=== PATIENT | male | born 1965 | race Caucasian/White ===

== ENCOUNTER 2021-10-19 06:32 | Inpatient (IN) | payer OTHER ==
[~2021-10-19 06:32] MED LIST: Famotidine 20 MG/2 ML SDV IVPUSH SCH; Lactated Ringers 1,000 ML IV SCH; Ropivacaine 49.25 ML, Ketorolac 30 MG, EPINEPHrine 0.5 MG, cloNIDine 80 MCG in Sodium C... INJECT SCH; Scopolamine 1.5 MG Transdermal Patch TRDERM SCH
[2021-10-19] MEDS ORDERED: HYDROmorphone 1 MG/ML Syringe IVPUSH PRN (07:02)
[2021-10-19] MEDS ORDERED: fentaNYL 50 MCG/ML SDV IVPUSH PRN (07:02)
[2021-10-19] MEDS ORDERED: Naloxone 0.4 MG/ML SDV IVPUSH PRN (07:02)
[2021-10-19] MEDS ORDERED: Ondansetron 4 MG/2 ML SDV IVPUSH PRN ×2 (07:02→11:10)
[2021-10-19] MEDS ORDERED: Metoclopramide 10 MG/2 ML SDV IVPUSH PRN (07:02)
[2021-10-19] MEDS ORDERED: Albuterol 0.083% 2.5 MG/3 ML Neb Soln NEB PRN (07:02)
[2021-10-19] MEDS ORDERED: Famotidine 20 MG/2 ML SDV ONE (07:11)
[2021-10-19] MEDS ORDERED: propofoL 100 ML ONE (07:12)
[2021-10-19] MEDS ORDERED: fentaNYL 100 MCG/2 ML SDV ONE (07:13)
[2021-10-19] MEDS ORDERED: Dexmedetomidine 200 MCG/2 ML SDV ONE (07:15)
[2021-10-19] MEDS ORDERED: Water For Injection, Sterile 20 ML ONE (07:30)
[2021-10-19] MEDS ORDERED: Tranexamic Acid 1,000 MG/10 ML Vial ONE (07:30)
[2021-10-19] MEDS ORDERED: Ropivacaine 0.5% 5 MG/ML 30 ML SDV ONE (07:40)
[2021-10-19] MEDS ORDERED: ceFAZolin 2 GM in Premix Bag 1 BAG IV SCH (08:00)
[2021-10-19] MEDS ORDERED: Tranexamic Acid 1,000 MG in Sodium Chloride 0.9% 100 ML IV ONE (08:00)
[2021-10-19] MEDS ORDERED: Phenylephrine HCl In 0.9% NaCl 1 MG/10 ML Vial ONE ×2 (08:45→12:09)
[2021-10-19] MEDS ORDERED: Phenylephrine 1% 10 MG/ML SDV ONE (08:52)
[2021-10-19] MEDS ORDERED: Aluminum Hydroxide/Magnesium Hydroxide/Simethicone XS Susp 30 ML Cup PO PRN (11:10)
[2021-10-19] MEDS ORDERED: Bisacodyl 10 MG Supp RECTAL PRN (11:10)
[2021-10-19] MEDS ORDERED: Sodium Chloride 0.9% 10 ML Syringe FLUSH PRN (11:10)
[2021-10-19] MEDS ORDERED: diphenhydrAMINE 25 MG Cap PO PRN (11:10)
[2021-10-19] MEDS ORDERED: traMADol 50 MG Tab PO PRN (11:10)
[2021-10-19] MEDS ORDERED: Sodium Chloride 0.9% 2.5 ML Syringe FLUSH PRN (11:10)
[2021-10-19] MEDS ORDERED: Vasopressin 20 Units/1 ML MDV ONE (12:08)
[2021-10-19 14:07] LABS: CARBON DIOXIDE,CO2 27.4 mmol/L (21.0-32.0); POTASSIUM,K 4.4 mmol/L (3.5-5.1)
[2021-10-19] MEDS ORDERED: Acetaminophen 325 MG Tab PO PRN (15:00)
[2021-10-19] MEDS ORDERED: Phenylephrine 10 MG in Sodium Chloride 0.9% 99 ML IV SCH (16:15)
[2021-10-19] MEDS: oxyCODONE 5 MG Tab PO PRN ×2 (17:17→22:14)
[2021-10-19] MEDS: Ketorolac 30 MG/ML SDV IVPUSH SCH ×3 (17:19→23:50)
[2021-10-19] MEDS: ceFAZolin 2 GM in Premix Bag 1 BAG IV SCH ×2 (18:33→23:42)
[2021-10-19] MEDS: Aspirin 325 MG Tab PO SCH (19:53)
[2021-10-19] MEDS: Docusate Sodium 100 MG Cap PO SCH (20:17)
[2021-10-19] MEDS: Morphine 2 MG/ML SYRINGE IVPUSH PRN (20:48)
[2021-10-19] MEDS ORDERED: LORazepam 2 MG/ML SDV IVPUSH ONE (22:31)
[2021-10-19] MEDS: HYDROmorphone 2 MG/ML Syringe IVPUSH SCH (22:40)
[2021-10-19] MEDS: Cyclobenzaprine 5 MG Tab PO PRN (22:49)
[2021-10-20] MEDS: HYDROmorphone 2 MG/ML Syringe IVPUSH SCH (00:33)
[2021-10-20] MEDS: Morphine 2 MG/ML SYRINGE IVPUSH PRN (04:06)
[2021-10-20] MEDS: oxyCODONE 5 MG Tab PO PRN ×2 (06:15→10:28)
[2021-10-20] MEDS: Cyclobenzaprine 5 MG Tab PO PRN (07:03)
[2021-10-20] MEDS ORDERED: Levothyroxine 100 MCG Tab PO SCH (07:30)
[2021-10-20] MEDS: Aspirin 325 MG Tab PO SCH (08:09)
[2021-10-20] MEDS: Docusate Sodium 100 MG Cap PO SCH (08:09)
[2021-10-20] MEDS: Acetaminophen 325 MG Tab PO SCH ×2 (08:39→15:03)
[2021-10-20] MEDS ORDERED: Mirtazapine 15 MG Tab PO PRN (08:53)
[2021-10-20] MEDS ORDERED: buPROPion 150 MG Tab.ER PO SCH (09:00)
[2021-10-20] MEDS ORDERED: Famotidine 20 MG Tab PO SCH (09:00)
[2021-10-20] MEDS ORDERED: Citalopram 20 MG Tab PO SCH (09:00)
[2021-10-20] MEDS ORDERED: Polyethylene Glycol 3350 Powder 17 GM Packet PO SCH (09:00)
[2021-10-20] MEDS ORDERED: Ibuprofen 800 MG Tab PO PRN (11:25)
== END 2021-10-20 16:30 | disposition home or self-care (01) | DRG 470 ==
LOC: MW.MS 06:32 → MW.ICU 15:16
PROVIDERS: ADMIT Orthopaedic Surgery; ATTEND Orthopaedic Surgery
PROC: 0SRB0JZ Replacement of Left Hip Joint with Synthetic Substitute, Open Approach (ICD-10-PCS; principal; 2021-10-19)
DX: M16.12 Unilateral primary osteoarthritis, left hip (principal); I95.9 Hypotension, unspecified; F41.9 Anxiety disorder, unspecified; G47.33 Obstructive sleep apnea (adult) (pediatric); F32.A Depression, unspecified; E03.9 Hypothyroidism, unspecified; Z96.661 Presence of right artificial ankle joint; E66.9 Obesity, unspecified; Z68.30 Body mass index [BMI] 30.0-30.9, adult; Z79.82 Long term (current) use of aspirin; Z79.899 Other long term (current) drug therapy; Z79.890 Hormone replacement therapy; Z79.1 Long term (current) use of non-steroidal anti-inflammatories (NSAID); Z79.52 Long term (current) use of systemic steroids; Z90.89 Acquired absence of other organs; Z98.890 Other specified postprocedural states; Z97.4 Presence of external hearing-aid; Z86.010 Personal history of colon polyps; Z87.81 Personal history of (healed) traumatic fracture; Z87.891 Personal history of nicotine dependence
CPT/HCPCS: 01214; 36415; 64486; 73501-26-LT; 73501-LT; 80048; 82947; 83735; 85014; 85018; 85025; 86850; 86900; 86901; 97161-GP; 97530-GP; 99221; 99231; A9270-GY; C1713; C1776; J0171; J0690; J0735; J1170; J1885; J2060; J2270; J2370; J2704; J2795; J3010; J3490; J7120

== ENCOUNTER 2021-10-26 10:56 | Emergency (ER) | payer OTHER | END 2021-10-26 12:23 | disposition home or self-care (01) | LOC: MW.ED 10:56 | DX: R20.2 Paresthesia of skin (principal); E66.9 Obesity, unspecified; Z68.33 Body mass index [BMI] 33.0-33.9, adult; Z79.899 Other long term (current) drug therapy; Z79.82 Long term (current) use of aspirin | CPT/HCPCS: 93971-26-RT; 93971-RT; 99284 ==

== ENCOUNTER 2022-09-08 04:14 | Emergency (ER) | payer OTHER | END 2022-09-08 04:40 | disposition left against medical advice (07) | LOC: MW.ED 04:14 | DX: F32.A Depression, unspecified (principal); E03.9 Hypothyroidism, unspecified; E66.9 Obesity, unspecified; Z68.37 Body mass index [BMI] 37.0-37.9, adult | CPT/HCPCS: 99282; 99283 ==

== ENCOUNTER 2022-09-08 06:05 | Emergency (ER) | payer OTHER ==
[2022-09-08 06:24] LABS: BASOPHILS PERCENT AUTO 0.7 % (0.0-1.5); EOSINOPHILS ABSOLUTE AUTO 0.4 K/uL (0.0-0.7); EOSINOPHILS PERCENT AUTO 6.7 % (0.0-7.0); HEMATOCRIT 47.9 % (38.0-50.0); HEMOGLOBIN 16.6 g/dL (13.0-17.0); LYMPHOCYTES ABSOLUTE AUTO 2.2 K/uL (0.6-2.4); LYMPHOCYTES PERCENT AUTO 36.5 % (16.0-40.0); MEAN CORPUSCULAR HEMOGLOBIN 31.7 pg (27.0-32.0); MEAN CORPUSCULAR HGB CONC 34.7 g/dL (31.0-37.0); MEAN CORPUSCULAR VOLUME 91.4 fL (80.0-98.0); MONOCYTES ABSOLUTE AUTO 0.7 K/uL (0.0-0.8); MONOCYTES PERCENT AUTO 11.5 % (0.0-15.0); NEUTROPHILS ABSOLUTE AUTO 2.7 K/uL (1.4-5.7); NEUTROPHILS PERCENT AUTO 44.6 % (48.0-80.0); PLATELET COUNT,PLT 253 K/uL (150-400); RED BLOOD CELL COUNT 5.24 M/uL (4.50-5.90); WHITE BLOOD CELL COUNT,WBC 5.98 K/uL (4.0-11.0)
[2022-09-08 06:46] LABS: APPEARANCE,URINE CLEAR; BILIRUBIN,URINE NEGATIVE (NEGATIVE); COLOR,URINE YELLOW; GLUCOSE,URINE NEGATIVE (NEGATIVE); KETONES,URINE NEGATIVE (NEGATIVE); LEUKOCYTE ESTERASE,URINE NEGATIVE (NEGATIVE); NITRITE,URINE NEGATIVE (NEGATIVE); OCCULT BLOOD,URINE NEGATIVE (NEGATIVE); PROTEIN,URINE 30 mg/dL (NEGATIVE)
[2022-09-08 06:54] LABS: BACTERIA,URINE RARE (NEGATIVE); EPITHELIAL CELLS,URINE FEW (NONE-FEW); MUCUS,URINE LIGHT (NONE-MOD); RBC,URINE NONE SEEN (0-2/HPF); WBC,URINE 0-1 (0-5/HPF)
[2022-09-08 06:55] LABS: AMPHETAMINES SCREEN, URINE NEGATIVE (CUTOFF=500); BARBITURATE SCREEN,URINE NEGATIVE (CUTOFF=200); BENZODIAZEPINES SCREEN,URINE NEGATIVE (CUTOFF=150); BUPRENORPHINE SCREEN,URINE NEGATIVE (CUTOFF=10); METHADONE SCREEN, URINE NEGATIVE (CUTOFF=200); METHAMPHETAMINES SCREEN, URINE NEGATIVE (CUTOFF=500); OXYCODONE SCREEN,URINE NEGATIVE (CUT0FF=100); PCP SCREEN,URINE NEGATIVE (CUTOFF=25); PROPOXYPHENE SCREEN,URINE NEGATIVE (CUTOFF=300); THC SCREEN,URINE 20 NG/ML NEGATIVE (CUTOFF=50)
[2022-09-08 07:19] LABS: ACETAMINOPHEN <2.0 ug/mL; ALANINE AMINOTRANSFERASE,ALT 63 IU/L (14-63); ALBUMIN 3.7 g/dL (3.4-5.0); ALKALINE PHOSPHATASE 45 U/L (46-116); ASPARTATE AMNIOTRANSFERASE,AST 76 IU/L (15-37); BILIRUBIN TOTAL 0.7 mg/dL (0.2-1.0); BLOOD UREA NITROGEN,BUN 23 mg/dL (7.0-18.0); CALCIUM 9.2 mg/dL (8.5-10.1); CARBON DIOXIDE,CO2 26.5 mmol/L (21.0-32.0); CHLORIDE,CL 106 mmol/L (98-107); EST CRCL DRUG DOSING (CG) 84.37 mL/min; ETHANOL BLOOD MEDICAL <3 mg/dL; GLUCOSE RANDOM 126 mg/dL (74-106); POTASSIUM,K 4.2 mmol/L (3.5-5.1); PROTEIN TOTAL,TP 7.3 g/dL (6.4-8.2); SALICYLATE 0.4 mg/dL (0.0-20.0); SODIUM,NA 142 mmol/L (136-148)
[2022-09-08 07:20] LABS: ESTIMATED GFR 87 mL/min (>60)
== END 2022-09-08 08:52 | disposition home or self-care (01) ==
LOC: MW.ED 06:05
DX: F32.A Depression, unspecified (principal); E03.9 Hypothyroidism, unspecified; E66.9 Obesity, unspecified; Z68.37 Body mass index [BMI] 37.0-37.9, adult; Z79.899 Other long term (current) drug therapy
CPT/HCPCS: 36415; 80053; 80143; 80179; 80305-QW; 80307; 81001; 83735; 84443; 85025; 99282; 99284

== ENCOUNTER 2022-10-03 20:52 | Emergency (ER) | payer OTHER ==
[2022-10-03] MEDS ORDERED: Sodium Chloride 0.9% 1,000 ML IV ONE (20:54)
[2022-10-03] MEDS ORDERED: diphenhydrAMINE 50 MG/ML SDV IVPUSH ONE (20:56)
[2022-10-03] MEDS ORDERED: Ketorolac 30 MG/ML SDV IVPUSH ONE (20:56)
[2022-10-03] MEDS ORDERED: Metoclopramide 10 MG/2 ML SDV IVPUSH ONE (20:56)
[2022-10-03 21:28] LABS: BASOPHILS ABSOLUTE AUTO 0.1 K/uL (0.0-0.1); BASOPHILS PERCENT AUTO 0.7 % (0.0-1.5); EOSINOPHILS ABSOLUTE AUTO 0.2 K/uL (0.0-0.7); EOSINOPHILS PERCENT AUTO 1.9 % (0.0-7.0); HEMATOCRIT 46.6 % (38.0-50.0); HEMOGLOBIN 16.1 g/dL (13.0-17.0); LYMPHOCYTES ABSOLUTE AUTO 1.9 K/uL (0.6-2.4); MEAN CORPUSCULAR HEMOGLOBIN 31.4 pg (27.0-32.0); MEAN CORPUSCULAR HGB CONC 34.5 g/dL (31.0-37.0); MONOCYTES PERCENT AUTO 8.1 % (0.0-15.0); NEUTROPHILS ABSOLUTE AUTO 8.7 K/uL (1.4-5.7); NEUTROPHILS PERCENT AUTO 73.3 % (48.0-80.0); NRBC ABSOLUTE 0 K/uL; PLATELET COUNT,PLT 190 K/uL (150-400); RED BLOOD CELL COUNT 5.12 M/uL (4.50-5.90); WHITE BLOOD CELL COUNT,WBC 11.86 K/uL (4.0-11.0)
[2022-10-03 21:52] LABS: ACETAMINOPHEN <2.0 ug/mL; ALANINE AMINOTRANSFERASE,ALT 79 IU/L (14-63); ALBUMIN 3.6 g/dL (3.4-5.0); ALKALINE PHOSPHATASE 40 U/L (46-116); ASPARTATE AMNIOTRANSFERASE,AST 51 IU/L (15-37); BILIRUBIN TOTAL 0.7 mg/dL (0.2-1.0); BLOOD UREA NITROGEN,BUN 18 mg/dL (7.0-18.0); CALCIUM 9.5 mg/dL (8.5-10.1); CHLORIDE,CL 103 mmol/L (98-107); CREATINE KINASE,CK 511 U/L (26-308); EST CRCL DRUG DOSING (CG) 84.71 mL/min; GLUCOSE RANDOM 122 mg/dL (74-106); PROTEIN TOTAL,TP 7.3 g/dL (6.4-8.2); SALICYLATE 0.6 mg/dL (0.0-20.0); SODIUM,NA 141 mmol/L (136-148)
[2022-10-03 21:55] LABS: ESTIMATED GFR 87 mL/min (>60)
[2022-10-03] MEDS ORDERED: Iopamidol 755 MG/ML 500 ML Multipack Bottle IVPUSH ONE (22:13)
[2022-10-03 23:56] LABS: APPEARANCE,URINE CLEAR; BILIRUBIN,URINE NEGATIVE (NEGATIVE); COLOR,URINE YELLOW; GLUCOSE,URINE NEGATIVE (NEGATIVE); KETONES,URINE NEGATIVE (NEGATIVE); LEUKOCYTE ESTERASE,URINE NEGATIVE (NEGATIVE); NITRITE,URINE NEGATIVE (NEGATIVE); OCCULT BLOOD,URINE NEGATIVE (NEGATIVE); PH,URINE 6.5 (5.0-8.0); PROTEIN,URINE NEGATIVE (NEGATIVE); UROBILINOGEN,URINE 0.2 EU/dL (<2.0)
== END 2022-10-04 00:35 | disposition home or self-care (01) ==
LOC: MW.ED 20:52
DX: T67.5XXA Heat exhaustion, unspecified, initial encounter (principal); E86.0 Dehydration; R10.9 Unspecified abdominal pain; R51.9 Headache, unspecified; E03.9 Hypothyroidism, unspecified; E66.9 Obesity, unspecified; Z68.37 Body mass index [BMI] 37.0-37.9, adult
CPT/HCPCS: 36415; 74177; 80053; 80143; 80179; 81003; 82550; 83690; 85025; 96361; 96374; 96375; 99285; J1200; J1885; J2765; J7030; Q9967; 93010; 99284

== ENCOUNTER 2022-10-25 06:14 | Day surgery (SDC) | payer OTHER ==
[~2022-10-25 06:14] MED LIST changes: -Famotidine 20 MG/2 ML SDV IVPUSH SCH; -Ropivacaine 49.25 ML, Ketorolac 30 MG, EPINEPHrine 0.5 MG, cloNIDine 80 MCG in Sodium C... INJECT SCH; -Scopolamine 1.5 MG Transdermal Patch TRDERM SCH
[2022-10-25] MEDS ORDERED: Dexmedetomidine 200 MCG/2 ML SDV ONE (07:21)
[2022-10-25] MEDS ORDERED: Ondansetron 4 MG/2 ML SDV ONE (07:22)
[2022-10-25] MEDS ORDERED: fentaNYL 100 MCG/2 ML SDV ONE (07:22)
[2022-10-25] MEDS ORDERED: Propofol 200 MG/20 ML SDV ONE (07:22)
[2022-10-25] MEDS ORDERED: Dexamethasone 4 MG/ML 5 ML MDV ONE (07:23)
[2022-10-25] MEDS ORDERED: Bupivacaine 0.25% 30 ML SDV ONE (07:48)
[2022-10-25] MEDS ORDERED: Ondansetron 4 MG/2 ML SDV IVPUSH PRN (07:49)
[2022-10-25] MEDS ORDERED: HYDROmorphone 1 MG/ML Syringe IVPUSH PRN (07:49)
[2022-10-25] MEDS ORDERED: Metoclopramide 10 MG/2 ML SDV IVPUSH PRN (07:49)
[2022-10-25] MEDS ORDERED: fentaNYL 50 MCG/ML SDV IVPUSH PRN (07:49)
[2022-10-25] MEDS ORDERED: droPERidol 5 MG/2 ML SDV IVPUSH PRN (07:49)
[2022-10-25] MEDS ORDERED: Naloxone 0.4 MG/ML SDV IVPUSH PRN (07:49)
[2022-10-25] MEDS ORDERED: Albuterol 0.083% 2.5 MG/3 ML Neb Soln NEB PRN (07:49)
[2022-10-25] MEDS ORDERED: Morphine 2 MG/ML SYRINGE IVPUSH PRN (07:49)
[2022-10-25] MEDS ORDERED: ceFAZolin 2 GM in Sodium Chloride 0.9% 50 ML IV ONE (08:00)
[2022-10-25] MEDS ORDERED: ceFAZolin 2 GM Vial ONE (08:07)
[2022-10-25] MEDS ORDERED: ceFAZolin 1 GM Vial ONE (08:07)
[2022-10-25] MEDS ORDERED: Ketorolac 30 MG/ML SDV ONE (08:26)
== END 2022-10-25 09:45 | disposition home or self-care (01) ==
LOC: MW.SDS 06:14
PROVIDERS: ATTEND Orthopaedic Surgery
DX: G56.03 Carpal tunnel syndrome, bilateral upper limbs (principal); F41.9 Anxiety disorder, unspecified; F32.A Depression, unspecified; E03.9 Hypothyroidism, unspecified; E66.9 Obesity, unspecified; M19.90 Unspecified osteoarthritis, unspecified site; K76.0 Fatty (change of) liver, not elsewhere classified; G47.30 Sleep apnea, unspecified; Z68.37 Body mass index [BMI] 37.0-37.9, adult; Z96.649 Presence of unspecified artificial hip joint; Z87.891 Personal history of nicotine dependence; Z79.890 Hormone replacement therapy; Z79.899 Other long term (current) drug therapy
CPT/HCPCS: 64721; J0690; J1100; J1885; J2704; J3010; J3490; J7120; J2405

== ENCOUNTER 2023-12-29 17:04 | Emergency (ER) | payer OTHER ==
[2023-12-29] MEDS: hydrOXYzine HCl 25 MG Tab PO ONE ×2 (18:09→18:20)
== END 2023-12-29 18:37 | disposition home or self-care (01) ==
LOC: MW.ED 17:04
DX: Z76.0 Encounter for issue of repeat prescription (principal); F41.9 Anxiety disorder, unspecified; E03.9 Hypothyroidism, unspecified; Z79.899 Other long term (current) drug therapy; Z75.8 Other problems related to medical facilities and other health care
CPT/HCPCS: 99283; A9270